=== PATIENT | male | born 1960 | race Caucasian/White ===

== ENCOUNTER 2020-12-13 17:36 | Emergency (ER) | payer BC, MEDICARE, SELFPAY ==
--- NOTE | ~2020-12-13 | XR_ITS ---
XR foot RT min 3V DATE: 12/13/2020 17:57 INDICATION: Dropped car ramp on to right foot. 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 Prominent plantar and mild posterior calcaneal enthesopathy. Mild osteoarthritis at the first metatarsophalangeal joint. No fracture or dislocation, periosteal reaction or bone destruction. 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
--- NOTE | 2020-12-13 17:49 | ED.LOWEXIN ---
HPI - Extremity Injury (Lower) General Chief Complaint: Extremity Injury, Lower Stated Complaint: INJURED R FOOT Time Seen by Provider: 12/13/20 17:49 Source: patient, family and RN notes reviewed History of Present Illness HPI Narrative: Patient is a 60-year-old male who presents the urgent care with his spouse with complaints of right great toe redness and swelling. Patient states that he cannot feel the toe or his foot due to neuropathy but states that the swelling and redness/bruising has increased since yesterday. States that he dropped a metal car ramp on his foot. Patient states he was wearing a closed toed shoe at the time. Considering patient cannot feel the foot he has not taken anything [id number] for pain. No other complaints or injuries. No distress noted. Patient and spouse aware of the plan of care. Some parts of this dictation were generated by voice recognition software and may contain typographical and/or grammatical inaccuracies. Related Data Home Medications Medication Instructions Recorded Confirmed baclofen mg 12/13/20 primidone 12/13/20 tizanidine mg 12/13/20 Allergies Allergy/AdvReac Type Severity Reaction Status Date / Time aspartame Allergy Unknown Abdominal Verified 04/30/19 09:06 Pain loratadine AdvReac Intermediate tremors Verified 04/30/19 09:06 Review of Systems Review of Systems: CONSTITUTIONAL: Denies fever, chills, or sweats. EYES: Denies visual changes, redness, or discharge. ENT: Denies rhinorrhea, congestion, sore throat, or otalgia. CARDIOVASCULAR: Denies chest pain, palpitations, or edema. RESPIRATORY: Denies cough or dyspnea. GASTROINTESTINAL: Denies abdominal pain, nausea, vomiting, or diarrhea. GENITOURINARY: Denies dysuria or hematuria. SKIN: Denies rash or itching. MUSCULOSKELETAL: Reports of right great toe bruising/swelling NEUROLOGIC: Denies headache, numbness, or weakness. All other systems reviewed are negative, except as documented in HPI. [facility] Past Medical History Medical History (Updated 12/13/20 @ 18:34 by TIMMY Hawley) Asthma Body mass index [BMI]30.0-30.9, adult (09/22/18) Bronchitis Essential (primary) hypertension HTN (hypertension) Intermittent palpitations Leg fracture, left Mild intermittent asthma without complication Optic neuritis Peripheral neuropathy Rib fracture Small fiber neuropathy Tremor, essential Surgical History Surgical History (Updated 04/30/19 @ 08:58 by Phuong Rodas) History of arthroscopic knee surgery Bilateral History of tonsillectomy Family History Family History Mother Family history of malignant neoplasm of bone Family history of malignant neoplasm of breast in first degree relative Social History Social History Smoking status: Never smoker Alcohol intake: never Comments At the time of my signature, I reviewed and agree with the nursing past medical, surgical, social, and family history. There is no relevant family history pertinent to the patient complaint. Exam Narrative: GENERAL: This is a well-nourished, well-developed patient, in no apparent distress. HEAD: normocephalic, atraumatic. EYES: PERRL. Sclera clear/white. Vision is grossly intact. EARS: External ears normal NOSE: External nose normal with no obvious nasal discharge, nares without redness, no rhinorrhea. THROAT: Mucous membranes moist NECK: Neck supple CARDIOVASCULAR: Regular rate and rhythm without murmurs, gallops, or rubs. RESPIRATORY: Clear to auscultation. Breath sounds equal bilaterally. No wheezes, rales, or rhonchi. SKIN: warm, intact with no suspicious lesions or rash, good texture and turgor. NEURO: awake, alert, and oriented to person, place and time. There were no obvious focal neurologic abnormalities. EXTREMITIES: Mild to moderate ecchymosis with slight edema noted to the right great toe without tende
[2020-12-13 17:50] VITALS: BP 156/105; PULSE 80; RESP 16; TEMP 36.6; O2SAT 97
== END 2020-12-13 18:38 | disposition home or self-care (01) ==
PROVIDERS: Emergency Provider Nurse Practitioner Family; PCP Family Medicine
DX: S90.211A Contusion of right great toe with damage to nail, initial encounter (principal); W20.8XXA Other cause of strike by thrown, projected or falling object, initial encounter; J45.909 Unspecified asthma, uncomplicated; I10 Essential (primary) hypertension; G62.9 Polyneuropathy, unspecified
CPT/HCPCS: 73630; 99213; G0463